=== PATIENT | female | born 1955 | race Caucasian/White ===

== ENCOUNTER 2023-12-21 12:22 | Emergency (ER) | payer MEDICARE ==
[2023-12-21] MEDS ORDERED: Sodium Chloride 0.9% 10 ML Syringe FLUSH PRN (14:39)
[2023-12-21 15:19] LABS: CREATININE 0.7 mg/dL (0.6-1.0); EST CRCL DRUG DOSING (CG) 59.65 mL/min
[2023-12-21 15:22] LABS: LYME AB IgG Negative (Negative); LYME AB IgM Negative (Negative)
[2023-12-21] MEDS: Gadoteridol 279.3 MG/ML 10 ML SDV IVPUSH ONE (16:16)
== END 2023-12-21 17:07 | disposition home or self-care (01) ==
LOC: JP.ED 12:22
DX: H91.21 Sudden idiopathic hearing loss, right ear (principal); R20.0 Anesthesia of skin; Z79.52 Long term (current) use of systemic steroids; Z88.1 Allergy status to other antibiotic agents
CPT/HCPCS: 36415; 70553; 82550; 82565; 86618; 99284; A9579